=== PATIENT | female | born 1975 | race African-American/Black ===

== ENCOUNTER 2019-01-18 11:16 | Inpatient (IN) | payer BC, OTHER ==
[~2019-01-18] VITALS: Ht 152.4 cm; Wt 90.3 kg
[2019-01-18 11:27] VITALS: BP 172/97
[2019-01-18] MEDS ORDERED: ZOLOFT50 MG PO (11:29)
[2019-01-18] MEDS ORDERED: SEROQUEL 25 MG25 M1 PO (11:30)
[2019-01-18] MEDS ORDERED: XANAX 0.5 MG0.5 MG PO (11:30)
[2019-01-18] MEDS ORDERED: LOSARTAN-HCTZ1 EAC3 PO (11:30)
[2019-01-18 11:52] LABS: HEMATOCRIT 27.8 % (37.0-47.0); HEMOGLOBIN 8.9 gm/dL (12.0-15.0); MCH 22.2 pg (26.0-34.0); MCHC 31.8 g/dL (28.0-37.0); MCV 69.9 fL (80.0-100.0); MPV 8.1 fl. (7.2-11.1); NUCLEATED RBCS 0 /100WBC; PLATELET COUNT* 318 thou/uL (150-400); RBC 3.98 mil/uL (4.20-5.00); WBC 8.2 thou/uL (4.0-11.0)
[2019-01-18 12:00] LABS: CALCIUM 8.5 mg/dL (8.5-10.1); CREATININE 1.2 mg/dL (0.6-1.3); POTASSIUM 3.7 mmol/L (3.5-5.1)
[2019-01-18 12:04] LABS: ALBUMIN 3.4 g/dL (3.4-5.0); TOTAL BILIRUBIN 0.2 mg/dL (<0.1-1.0); TOTAL PROTEIN 8.1 g/dL (6.4-8.2)
[2019-01-18 12:15] LABS: ABSOLUTE LYMPHOCYTES 0.7 thou/uL (0.8-5.3); ABSOLUTE MONOCYTES 0.3 thou/uL (0.0-1.2); ABSOLUTE NEUTROPHILS 7.2 thou/uL (1.6-8.1); PLATELET ESTIMATE ADEQUATE
[2019-01-18 12:50] LABS: APTT 26.1 Seconds (25.0-31.3); PROTIME 10.7 Seconds (9.20-11.50)
[2019-01-18 15:02] VITALS: BP 162/80
[2019-01-18 15:25] VITALS: BP 154/33
[2019-01-18] MEDS ORDERED: ASPIRIN81 M2 PO (15:45)
[2019-01-18] MEDS ORDERED: PLAVIX 75 MG TA75 M1 PO (15:46)
[2019-01-18 16:00] VITALS: BP 198/103
[2019-01-18 20:00] VITALS: BP 164/96
[2019-01-19] VITALS: BP 150/96
[2019-01-19 04:00] VITALS: BP 152/93
[2019-01-19 08:00] VITALS: BP 142/88
[2019-01-19 08:53] LABS: ABSOLUTE LYMPHOCYTES 0.5 thou/uL (0.8-5.3); ABSOLUTE MONOCYTES 0.7 thou/uL (0.0-1.2); ABSOLUTE NEUTROPHILS 5.2 thou/uL (1.6-8.1); BASOPHILS 0.2 %; EOSINOPHILS 0.1 %; HEMATOCRIT 26.9 % (37.0-47.0); HEMOGLOBIN 8.6 gm/dL (12.0-15.0); LYMPHOCYTES 7.7 %; MCH 22.1 pg (26.0-34.0); MCHC 31.8 g/dL (28.0-37.0); MCV 69.4 fL (80.0-100.0); MONOCYTES 10.8 %; NUCLEATED RBCS 0 /100WBC; PLATELET COUNT* 263 thou/uL (150-400); POLYS 81.2 %; RBC 3.87 mil/uL (4.20-5.00); RDW-CV 17.9 % (10.5-14.5); WBC 6.4 thou/uL (4.0-11.0)
[2019-01-19 09:04] LABS: ALBUMIN 2.9 g/dL (3.4-5.0); CALCIUM 8.1 mg/dL (8.5-10.1); CREATININE 1.1 mg/dL (0.6-1.3); POTASSIUM 3.5 mmol/L (3.5-5.1); TOTAL BILIRUBIN 0.2 mg/dL (<0.1-1.0); TOTAL PROTEIN 7.5 g/dL (6.4-8.2)
[2019-01-19 12:00] VITALS: BP 135/86
[2019-01-19 16:00] VITALS: BP 133/76
[2019-01-19 20:00] VITALS: BP 111/65
[2019-01-20] VITALS: BP 102/64
[2019-01-20 04:00] VITALS: BP 112/73
[2019-01-20 08:00] VITALS: BP 99/54
[2019-01-20 11:08] VITALS: BP 106/55
[2019-01-20 11:24] LABS: URINE BILIRUBIN NEGATIVE (Negative); URINE BLOOD NEGATIVE (Negative); URINE CLARITY CLEAR; URINE COLOR YELLOW; URINE GLUCOSE-RANDOM NEGATIVE (Negative); URINE KETONES NEGATIVE (Negative); URINE LEUKOCYTES-REFLEX NEGATIVE (Negative); URINE NITRITE-REFLEX NEGATIVE (Negative); URINE PROTEIN NEGATIVE (Negative); URINE SPECIFIC GRAVITY <= 1.005 (1.005-1.030); URINE UROBILINOGEN 0.2 E.U./dl (0.2-1.0)
[2019-01-20 11:53] LABS: ABSOLUTE MONOCYTES 0.6 thou/uL (0.0-1.2); BASOPHILS 0.3 %; EOSINOPHILS 0.1 %; HEMATOCRIT 24.6 % (37.0-47.0); HEMOGLOBIN 7.6 gm/dL (12.0-15.0); LYMPHOCYTES 12.6 %; MCH 22.1 pg (26.0-34.0); MCV 71.5 fL (80.0-100.0); MONOCYTES 7.4 %; MPV 8.4 fl. (7.2-11.1); NUCLEATED RBCS 0 /100WBC; PLATELET COUNT* 228 thou/uL (150-400); POLYS 79.6 %; RBC 3.44 mil/uL (4.20-5.00); RDW-CV 18.2 % (10.5-14.5); WBC 7.5 thou/uL (4.0-11.0)
[2019-01-20 12:05] LABS: ALBUMIN 2.7 g/dL (3.4-5.0); CALCIUM 8.1 mg/dL (8.5-10.1); CREATININE 1.3 mg/dL (0.6-1.3); POTASSIUM 3.2 mmol/L (3.5-5.1); TOTAL BILIRUBIN 0.2 mg/dL (<0.1-1.0); TOTAL PROTEIN 7.3 g/dL (6.4-8.2)
[2019-01-20 13:08] LABS: ANISOCYTOSIS 1+; HYPOCHROMASIA 1+; MICROCYTES 1+; OVALOCYTES 1+; PLATELET ESTIMATE ADEQUATE; POIKILOCYTOSIS 1+
[2019-01-20 15:37] LABS: CALCIUM 7.8 mg/dL (8.5-10.1); CREATININE 1.1 mg/dL (0.6-1.3)
[2019-01-20 15:40] VITALS: BP 110/66
[2019-01-20 20:00] VITALS: BP 144/93
[2019-01-21] VITALS (7 sets, daily range): BP systolic 115–134; BP diastolic 73–84
[2019-01-21 05:24] LABS: HEMATOCRIT 23.7 % (37.0-47.0); HEMOGLOBIN 7.4 gm/dL (12.0-15.0); MCH 22.2 pg (26.0-34.0); MCHC 31.2 g/dL (28.0-37.0); MCV 71.1 fL (80.0-100.0); MPV 7.9 fl. (7.2-11.1); RBC 3.33 mil/uL (4.20-5.00); RDW-CV 18.1 % (10.5-14.5)
[2019-01-21 05:56] LABS: ALBUMIN 2.3 g/dL (3.4-5.0); CALCIUM 8.1 mg/dL (8.5-10.1); CREATININE 1.1 mg/dL (0.6-1.3); MAGNESIUM 1.9 mg/dL (1.8-2.4); POTASSIUM 3.9 mmol/L (3.5-5.1); TOTAL BILIRUBIN 0.1 mg/dL (<0.1-1.0); TOTAL PROTEIN 6.5 g/dL (6.4-8.2)
[2019-01-21 10:59] LABS: % SATURATION 5 % (20-39); IRON 14 ug/dL (50-175)
--- NOTE | 2019-01-21 11:47 | CON ---
[address] [address] CONSULTATION Name: QUINTON SNIDER Room: [address] IN M.R.#: [id number] Admission: 01/18/19 Attend Phys: Yuni Roblero Discharge: Date of : 77 Report #: [id number] THIS REPORT FOR: //name// CC: NANI physician/PCP Rubin Nevarez DATE OF SERVICE: 01/20/2019 INFECTIOUS DISEASE CONSULTATION ATTENDING PHYSICIAN: Dr. Simpson. REASON FOR EVALUATION: Fevers, uncertain etiology. HISTORY OF PRESENT ILLNESS: Chart reviewed, patient examined. 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 However, due to inability to extend it after she ran out, she has been off it for several days. She has traveled from [place] to participate in the [employer]. She did eat there on Saturday night; however, onset of signs and symptoms occurred Saturday initially with nausea and emesis. She was able to sleep for a bit and woke up with some abdominal related pain. It was primarily right-sided. Evaluation was undertaken, subsequently noted to have temperature elevation to 100.2 degrees Fahrenheit. She has been afebrile over the course of last 20 hours. She had been empirically started on ceftriaxone. Blood cultures thus far are unremarkable. Urinalysis is unremarkable. CT of the chest was undertaken. No evidence of pneumonitis. There is some question of a small intraluminal filling defect in the abdominal aorta without evidence of aortic dissection, had borderline LFT elevation; however, not initially. Lactic acid level was elevated at 2.4, repeat was 1.9. She is not encephalopathic at this point. She denies any significant pulmonary or gastrointestinal related complaints. ALLERGIES: LISTED TO MORPHINE, WHICH CAUSES URTICARIA. CURRENT MEDICATIONS: Include p.r.n. analgesics, antiemetics, aspirin, ceftriaxone, clopidogrel, losartan, quetiapine, sertraline, alprazolam. PAST MEDICAL HISTORY: As described above. Aortic thrombus, previous . SOCIAL HISTORY: Nonsmoker. No illicit drug use. Occasional ethanol. FAMILY HISTORY: Noncontributory. REVIEW OF SYSTEMS: Otherwise, unremarkable 10-point [place] [id number] CONSULTATION Name: QUINTON SNIDER Room: [address]#: [id number] Admission: 01/18/19 Attend Phys: Yuni Roblero Discharge: Date of : 77 Report #: [id number] exception as noted above in history of present illness. PHYSICAL EXAMINATION: GENERAL: Alert, cooperative, appropriate. She is not overtly toxic. She has mild distress, appears reasonably well nourished. VITAL SIGNS: Temperature 98.3, T-max to 100.2 within the last 24 hours, pulse 83, respirations 19, blood pressure 106/55. SKIN: Warm, dry, no rashes. HEENT: Normocephalic. Extraocular muscles intact. NECK: Supple. LUNGS: Clear to auscultation bilaterally. HEART: Regular. I do not appreciate a murmur. ABDOMEN: Slightly distended. There is no significant palpable tenderness. There are no peritoneal signs. GENITOURINARY: Deferred. RECTAL: Deferred. EXTREMITIES: Distal lower extremities without edema. LABORATORY DATA: Urinalysis unremarkable. Most recent electrolytes showed sodium 136, potassium 3.5, chloride 101, bicarbonate 24, anion gap of 11, BUN and creatinine 11 and 1.1, glucose of 111. AST of 84, albumin 2.9, total protein is 7.5. CBC shows white count 6.4, H and H 8.6 and 26.9, platelets of 263,000. Did have a lymphocytopenia of 500. Blood cultures sterile thus far. ASSESSMENT AND PLAN: Fever of uncertain etiology. There is some mild elevation of the AST. She has some right upper quadrant pain. We will go ahead and do an ultrasound of the abdomen, particularly biliary tract. At this point, there is no evidence of pneumonitis or complicated urinary tract infection. May simply be a viral etiology or some noninfectious cause such as thrombus, next 24-48 hours. Continue empiric therapy with ceftriaxone for the moment. <ELECTRONICALLY SIGNED> By: Vin Damian MD 01/21/19 [id number] Damian MD /nt
[2019-01-22 00:33] VITALS: BP 136/85
[2019-01-22 04:30] VITALS: BP 134/84
[2019-01-22 04:47] LABS: HEMATOCRIT 22.5 % (37.0-47.0); HEMOGLOBIN 7.1 gm/dL (12.0-15.0); MCH 22.2 pg (26.0-34.0); MCHC 31.6 g/dL (28.0-37.0); MCV 70.3 fL (80.0-100.0); MPV 8.5 fl. (7.2-11.1); RBC 3.2 mil/uL (4.20-5.00); RDW-CV 17.8 % (10.5-14.5); WBC 5.5 thou/uL (4.0-11.0)
[2019-01-22 04:53] LABS: CALCIUM 8.5 mg/dL (8.5-10.1); POTASSIUM 3.8 mmol/L (3.5-5.1)
[2019-01-22 08:00] VITALS: BP 151/86
[2019-01-22] MEDS ORDERED: PLAVIX 75 MG TA75 M1 PO (13:30)
[2019-01-22 13:56] VITALS: BP 151/86
== END 2019-01-22 14:26 | disposition home or self-care (01) | DRG 303 ==
LOC: M.ERS 11:16 → M.2W 13:55 → M.TBA-ER 13:55 → M.2W 15:13
PROVIDERS: Family Medicine; Physician Assistant; ADMIT Internal Medicine
DX: I51.3 Intracardiac thrombosis, not elsewhere classified (principal); N28.0 Ischemia and infarction of kidney; D68.59 Other primary thrombophilia; D64.9 Anemia, unspecified; I10 Essential (primary) hypertension; E78.5 Hyperlipidemia, unspecified; E66.01 Morbid (severe) obesity due to excess calories; F32.9 Major depressive disorder, single episode, unspecified; F41.9 Anxiety disorder, unspecified; Z88.6 Allergy status to analgesic agent; Z83.2 Family history of diseases of the blood and blood-forming organs and certain disorders involving the immune mechanism; Z79.82 Long term (current) use of aspirin; Z79.899 Other long term (current) drug therapy; Z91.19 Patient's noncompliance with other medical treatment and regimen; Z68.38 Body mass index [BMI] 38.0-38.9, adult